=== PATIENT | male | born 1990 | race Caucasian/White ===

== ENCOUNTER → 2024-09-12 09:07 | Outpatient (REF) | payer OTHER, SELFPAY | LOC: MRI 3T 09:07 | PROVIDERS: ATTENDING PHYSICIAN Physician Assistant Surgical; FAMILY PHYSICIAN Family Medicine | DX: M25.511 Pain in right shoulder (principal) | CPT/HCPCS: 73221 ==

== ENCOUNTER → 2024-09-16 15:01 | Outpatient (REF) | payer OTHER, SELFPAY | LOC: EMG 15:01 | PROVIDERS: ATTENDING PHYSICIAN Physician Assistant Surgical; FAMILY PHYSICIAN Family Medicine | DX: R20.0 Anesthesia of skin (principal) | CPT/HCPCS: 95886; 95909 ==

== ENCOUNTER 2025-06-10 06:06 | Outpatient (RCR) | payer OTHER, SELFPAY | END 2025-06-10 23:59 | disposition home or self-care (01) | LOC: RPT 06:06 | PROVIDERS: ATTENDING PHYSICIAN Student in an Organized Health Care Education/Training Program; FAMILY PHYSICIAN Family Medicine | DX: Z47.89 Encounter for other orthopedic aftercare (principal); M25.511 Pain in right shoulder; Z73.6 Limitation of activities due to disability; S43.431D Superior glenoid labrum lesion of right shoulder, subsequent encounter; M62.81 Muscle weakness (generalized) | CPT/HCPCS: 97010; 97110; 97140; 97162 ==